=== PATIENT | male | born 1960 | race Caucasian/White ===

== ENCOUNTER 2019-07-01 21:49 | Emergency (ER) | payer MEDICAID ==
[2019-07-01] MEDS ORDERED: Sodium Chloride 0.9% 10 ML Syringe FLUSH PRN (21:56)
[2019-07-01] MEDS ORDERED: Ondansetron 4 MG/2 ML SDV IVPUSH ONE (21:56)
[2019-07-01] MEDS ORDERED: Sodium Chloride 0.9% 1,000 ML IV ONE (21:56)
--- NOTE | 2019-07-01 22:02 | EDM.PDOC ---
ED HPI GENERAL MEDICAL PROBLEM - General Chief Complaint: Chest Pain Stated Complaint: chest pain Time Seen by Provider: 07/01/19 21:55 Source of Information: Reports: Patient History Limitations: Reports: No Limitations - History of Present Illness INITIAL COMMENTS - FREE TEXT/NARRATIVE: Patient is a 58-year-old gentleman who presents to the emergency department this evening via EMS for a complaint of chest pain. Patient states at approximately 1930 this evening, while seated, and after consuming a very large meal and a glass of milk, he developed sharp pain localized to right upper chest. Patient felt nauseous and vomited once. Patient states that the pain has been mostly constant, with some periods of relief. Patient states he does have a history of hepatitis, but denies any cardiac history. Patient denies fever, shortness of breath, out of country travel, abdominal pain, pain radiation to extremities or neck, lower extremity edema, or any trauma. Onset: Today Onset Time: 19:30 Duration: Hour(s): Location: Reports: Chest Quality: Reports: Sharp Severity: Moderate Improves with: Reports: None Worsens with: Reports: None Associated Symptoms: Reports: Chest Pain, Diaphoresis, Nausea/Vomiting. Denies : Fever/Chills, Shortness of Breath Right Anterior Chest Pain Score (Numeric/FACES): 4 - Related Data Allergies Allergy/AdvReac Type Severity Reaction Status Date / Time aspirin Allergy Intermediate Bronchospas Verified 07/01/19 21:54 ms codeine Allergy Intermediate Bronchospas Verified 07/01/19 21:54 ms NSAIDS (Non-Steroidal Allergy Intermediate Abdominal Verified 07/01/19 21:54 Anti-Inflamma Pain Penicillins Allergy Intermediate Rash Verified 07/01/19 21:54 erythromycin base Allergy Rash Verified 07/01/19 21:54 Home Meds: Home Meds Famotidine [Pepcid] 20 mg PO BID #20 tab 07/01/19 [Rx] Ondansetron [Zofran ODT] 4 mg PO Q6H #10 tab.dis 07/01/19 [Rx] ED ROS GENERAL - Review of Systems Review Of Systems: Comprehensive ROS is negative, except as noted in HPI. Constitutional: Reports: No Symptoms HEENT: Reports: No Symptoms Respiratory: Reports: No Symptoms Cardiovascular: Reports: Chest Pain Endocrine: Reports: No Symptoms GI/Abdominal: Reports: Nausea, Vomiting. Denies: Abdominal Pain : Reports: No Symptoms Musculoskeletal: Reports: No Symptoms Skin: Reports: No Symptoms Neurological: Reports: No Symptoms Psychiatric: Reports: No Symptoms Hematologic/Lymphatic: Reports: No Symptoms Immunologic: Reports: No Symptoms ED EXAM, GENERAL - Physical Exam Exam: See Below Exam Limited By: No Limitations General Appearance: Alert, WD/WN, Mild Distress Eye Exam: Bilateral Eye: Normal Inspection Nose: Normal Inspection, Normal Mucosa, No Blood Throat/Mouth: Normal Inspection, Normal Oropharynx, No Airway Compromise Head: Atraumatic, Normocephalic Neck: Normal Inspection, Supple Respiratory/Chest: No Respiratory Distress, Lungs Clear, Normal Breath Sounds, No Accessory Muscle Use Cardiovascular: Regular Rate, Rhythm, No Murmur, No Rub GI/Abdominal: Normal Bowel Sounds, Soft, Non-Tender, No Organomegaly, No Distention, No Abnormal Bruit, No Mass Back Exam: Normal Inspection. No: CVA Tenderness (L), CVA Tenderness (R) Extremities: Normal Inspection, No Pedal Edema Neurological: Alert, Oriented, Normal Cognition Psychiatric: Normal Affect, Normal Mood Skin Exam: Warm, Dry, Intact, Normal Color, No Rash Lymphatic: No Adenopathy EKG INTERPRETATION EKG Date: 07/01/19 Time: 22:02 Rhythm: NSR Rate (Beats/Min): 86 [place]: Normal P-Wave: Present QRS: Normal ST-T: Normal QT: Normal Comparison: NA - No Prior EKG Course - Vital Signs Last Recorded V/S: Last Vital Signs Temp 97.4 F 07/01/19 21:50 Pulse 96 07/01/19 21:50 Resp 26 H 07/01/19 21:50 BP 117/79 07/01/19 21:50 Pulse Ox 97 07/01/19 21:50 - Orders/Labs/Meds Orders: Active Orders 24 hr Category Date Time Status EKG Documentation Completion [RC] ASDIRECTED Care 07/01/19 21:56 Ordered Peripheral IV Care [RC] . DIRECTED Care 07/01/19 21:56 Ordered Chest 1V Frontal [CR] Stat Exams 07/01/19 21:56 Ordered Sodium Chloride 0.9% [Saline Flush] Med 07/01/19 21:56 Ordered 10 ml FLUSH Q8HR PRN Peripheral IV Insertion Adult [OM.PC] Routine Oth 03/09/20 21:56 Ordered EKG 12 Lead [EK] Routine Ther 07/01/19 21:56 Ordered Medication Orders Sodium Chloride (Saline Flush) 10 ml FLUSH Q8HR PRN PRN Reason: keep vein open Labs: Laboratory Tests 07/01/19 07/01/19 Range/Units 22:50 22:50 WBC 10.38 H (5.00-10.00) 10^3/uL RBC 4.47 L (4.50-6.00) 10^6/uL Hgb 14.5 (13.0-17.0) g/dL Hct 41.2 (40.0-52.0) % MCV 92.2 H (82.0-92.0) fL MCH 32.4 H (27.0-31.0) pg MCHC 35.2 (32.0-36.0) g/dL RDW 13.8 (11.5-14.5) % Plt Count 42 L (150-400) 10^3/uL MPV 11.2 H (7.4-10.4) fL Immature Gran % (Auto) 0.3 (0.0-5.0) % Neut % (Auto) 71.4 H (50.0-70.0) % Lymph % (Auto) 21.4 (20.0-40.0) % [place] % (Auto) 5.5 (2.0-8.0) % Eos % (Auto) 1.0 (1.0-3.0) % Baso % (Auto) 0.4 (0.0-1.0) % Immature Gran # (Auto) 0.03 (0.00-0.50) 10^3/uL Neut # (Auto) 7.42 H (2.50-7.00) 10^3/uL Lymph # (Auto) 2.22 (1.00-4.00) 10^3/uL [place] # (Auto) 0.57 (0.10-0.80) 10^3/uL Eos # (Auto) 0.10 (0.10-0.30) 10^3/uL Baso # (Auto) 0.04 (0.00-0.10) 10^3/uL Clumped Platelets Occasional [place] Bodies Sodium 141 (136-145) mmol/L Potassium 5.7 H (3.3-5.3) mmol/L Chloride 102 (98-115) mmol/L Carbon Dioxide 25.6 (21.0-32.0) mmol/L Anion Gap 19.1 H (5-15) mmol/L BUN 29 H (6-25) mg/dL Creatinine 1.17 (0.51-1.17) mg/dL Est Cr Clr Drug Dosing 71.06 mL/min Estimated GFR (MDRD) > 60 mL/min Glucose 91 (75 - 99) mg/dL Calcium 10.2 (8.7-10.3) mg/dL Magnesium 2.3 (1.8-2.4) mg/dL Total Bilirubin 1.0 (0.2-1.0) mg/dL AST 66 H (15-37) U/L ALT 50 (12-78) U/L Alkaline Phosphatase 126 H (46-116) IU/L Troponin I < 0.04 (0.00-0.070) ng/mL Total Protein 8.4 H (6.4-8.2) g/dL Albumin 4.19 (3.00-4.80) g/dL Amylase 79 (25-125) U/L Lipase 92 (73-393) U/L Meds: Medications Generic Name Dose Route Start Last Admin Trade Name Freq PRN Reason Stop Dose Admin Sodium Chloride 10 ml 07/01/19 21:56 Saline Flush FLUSH Q8HR PRN keep vein open Discontinued Medications Generic Name Dose Route Start Last Admin Trade Name Freq PRN Reason Stop Dose Admin Famotidine 20 mg 07/01/19 23:40 Pepcid PO 07/01/19 23:41 ONETIME ONE Sodium Chloride 1,000 mls @ 999 mls/hr 07/01/19 21:56 Normal Saline IV 07/01/19 22:56 .BOLUS ONE Ondansetron HCl 4 mg 07/01/19 21:56 Zofran IVPUSH 07/01/19 21:57 ONETIME ONE Ondansetron HCl 4 mg 07/01/19 22:13 07/01/19 22:19 Zofran Odt PO 07/01/19 22:14 4 mg ONETIME ONE Administration Ondansetron HCl 4 mg 07/01/19 23:42 Zofran Odt PO 03/09/20 23:43 ONETIME ONE - Radiology Interpretation Free Text/Narrative:: Chest x-ray shows no acute cardiopulmonary process - Re-Assessments/Exams Free Text/Narrative Re-Assessment/Exam: 07/01/19 23:43 Patient afebrile, vital signs stable, discomfort relieved. Patient will follow- up at [facility] in 1-2 days. Departure - Departure Time of Disposition: 23:44 Disposition: Home, Self-Care 01 Condition: Good Clinical Impression: Gastroesophageal reflux disease Qualifiers: Esophagitis presence: without esophagitis Qualified Code(s): K21.9 - Gastro- esophageal reflux disease without esophagitis Instructions: Food Choices for Gastroesophageal Reflux Disease, Adult, Easy-to- Read, Gastroesophageal Reflux Disease, Adult, [id number] Forms: ED Department Discharge Additional Instructions: Follow-up at [facility] in next 1-2 days. Return to emergency department sooner symptoms continue or worsen. Take medication as directed. Sepsis Event Note - Focused Exam Vital Signs: Vital Signs Temp Pulse Resp BP Pulse Ox 07/01/19 21:50 97.4 F 96 26 H 117/79 97 Date Exam was Performed: 07/01/19 Time Exam was Performed: 23:43 - My Orders Last 24 Hours: My Active Orders 07/01/19 21:56 EKG Documentation Completion [RC] ASDIRECTED Peripheral IV Care [RC] . DIRECTED Chest 1V Frontal [CR] Stat Sodium Chloride 0.9% [Saline Flush] 10 ml FLUSH Q8HR PRN Peripheral IV Insertion Adult [OM.PC] Routine EKG 12 Lead [EK] Routine - Assessment/Plan Last 24 Hours: My Active Orders 07/01/19 21:56 EKG Documentation Completion [RC] ASDIRECTED Peripheral IV Care [RC] . DIRECTED Chest 1V Frontal [CR] Stat Sodium Chloride 0.9% [Saline Flush] 10 ml FLUSH Q8HR PRN Peripheral IV Insertion Adult [OM.PC] Routine EKG 12 Lead [EK] Routine Assessment:: GERD Plan: Follow-up with PCP
[2019-07-01] MEDS ORDERED: Ondansetron 4 MG Tab.DIS PO ONE ×2 (22:13→23:42)
[2019-07-01 23:31] LABS: ANION GAP 19.1 mmol/L (5-15); CHLORIDE,CL 102 mmol/L (98-115); SODIUM,NA 141 mmol/L (136-145)
[2019-07-01] MEDS ORDERED: Famotidine 20 MG Tab PO ONE (23:40)
--- NOTE | 2019-07-02 08:32 | CR ---
[id number] RAD/RAD Chest PA or AP 1V EXAM: RAD Chest PA or AP 1V INDICATION: CHEST PAIN COMPARISON: August 27, 2013. DISCUSSION: Cardiomediastinal silhouette is normal in size and contour. No infiltrate, effusion, pneumothorax, or edema. IMPRESSION: No acute findings in the chest. Addy Bellamy MD 07/02/19 0831 Thank you for allowing us to participate in the care of your patient.
== END 2019-07-01 23:55 | disposition home or self-care (01) ==
LOC: KA.ED 21:49
DX: K21.9 Gastro-esophageal reflux disease without esophagitis (principal); Z88.6 Allergy status to analgesic agent; Z88.5 Allergy status to narcotic agent; Z88.0 Allergy status to penicillin; Z88.1 Allergy status to other antibiotic agents; Z88.8 Allergy status to other drugs, medicaments and biological substances; Z79.899 Other long term (current) drug therapy
CPT/HCPCS: 36415; 71045; 80053; 82150; 83690; 83735; 84484; 85025; 93005; 99285-25; A9270-GY

== ENCOUNTER 2022-05-15 19:20 | Emergency (ER) | payer MEDICAID, SELFPAY ==
[2022-05-15] MEDS ORDERED: Ondansetron 4 MG/2 ML SDV IVPUSH ONE (19:37)
[2022-05-15] MEDS ORDERED: Sodium Chloride 0.9% 1,000 ML IV ONE (19:37)
[2022-05-15] MEDS ORDERED: Sodium Chloride 0.9% 10 ML Syringe FLUSH PRN (19:37)
[2022-05-15 20:42] LABS: ANION GAP 12.9 mmol/L (5-15)
[2022-05-15 20:42] LABS: RESPIRATORY SYNCYTIAL VIR NAA NEGATIVE (NEGATIVE)
[2022-05-15 20:44] LABS: CORONAVIRUS COVID-19 NAA POSITIVE (NEGATIVE)
[2022-05-15] MEDS ORDERED: Albuterol/Ipratropium 3.0-0.5 MG/3 ML Neb Soln NEB ONE (20:45)
[2022-05-15] MEDS ORDERED: Ketorolac 30 MG/ML SDV IVPUSH ONE (20:45)
[2022-05-15] MEDS ORDERED: Acetaminophen 500 MG Tab PO ONE (20:48)
== END 2022-05-15 21:40 | disposition home or self-care (01) ==
LOC: KA.ED 19:20
DX: U07.1 COVID-19 (principal); E86.0 Dehydration; Z88.5 Allergy status to narcotic agent; Z88.0 Allergy status to penicillin; Z88.8 Allergy status to other drugs, medicaments and biological substances; Z88.6 Allergy status to analgesic agent
CPT/HCPCS: 0241U; 36415; 71045; 80053; 83605; 84484; 85025; 93005; 93010; 94640; 96361; 96374; 96375; 99285; 99285-25; A9270-GY; J1885; J2405; J7030; J7620-GY

== ENCOUNTER 2023-04-03 02:56 | Emergency (ER) | payer SELFPAY ==
[2023-04-03] MEDS ORDERED: predniSONE 20 MG Tab PO ONE (03:34)
== END 2023-04-03 06:23 | disposition home or self-care (01) ==
LOC: KA.ED 02:56
DX: J45.909 Unspecified asthma, uncomplicated (principal); J44.9 Chronic obstructive pulmonary disease, unspecified; K21.9 Gastro-esophageal reflux disease without esophagitis; Z87.891 Personal history of nicotine dependence; Z79.899 Other long term (current) drug therapy; Z88.0 Allergy status to penicillin; Z88.8 Allergy status to other drugs, medicaments and biological substances; Z79.51 Long term (current) use of inhaled steroids; Z79.52 Long term (current) use of systemic steroids
CPT/HCPCS: 99284; J7512

== ENCOUNTER 2023-07-30 10:32 | Emergency (ER) | payer MEDICAID ==
[2023-07-30 11:15] LABS: BASOPHILS ABSOLUTE AUTO 0.06 10^3/uL (0.00-0.10); BASOPHILS PERCENT AUTO 0.6 % (0.0-1.0); EOSINOPHILS ABSOLUTE AUTO 0.05 10^3/uL (0.10-0.30); EOSINOPHILS PERCENT AUTO 0.5 % (1.0-3.0); HEMATOCRIT 43.4 % (40.0-52.0); HEMOGLOBIN 15.2 g/dL (13.0-17.0); IMMATURE GRAN ABSOLUTE AUTO 0.02 10^3/uL (0.00-0.50); IMMATURE GRAN PERCENT AUTO 0.2 % (0.0-5.0); LYMPHOCYTES ABSOLUTE AUTO 1.16 10^3/uL (1.00-4.00); LYMPHOCYTES PERCENT AUTO 11.8 % (20.0-40.0); MEAN CORPUSCULAR HEMOGLOBIN 30.8 pg (27.0-31.0); MEAN CORPUSCULAR VOLUME 87.9 fL (82.0-92.0); MEAN PLATELET VOLUME 8.9 fL (7.4-10.4); MONOCYTES ABSOLUTE AUTO 1.04 10^3/uL (0.10-0.80); MONOCYTES PERCENT AUTO 10.6 % (2.0-8.0); NEUTROPHILS ABSOLUTE AUTO 7.49 10^3/uL (2.50-7.00); NEUTROPHILS PERCENT AUTO 76.3 % (50.0-70.0); PLATELET COUNT,PLT 302 10^3/uL (150-400); RED BLOOD CELL COUNT 4.94 10^6/uL (4.50-6.00); RED CELL DISTRIBUTION WIDTH 14.5 % (11.5-14.5); WHITE BLOOD CELL COUNT,WBC 9.82 10^3/uL (5.00-10.00)
[2023-07-30 11:34] LABS: ALANINE AMINOTRANSFERASE,ALT 31 U/L (14-63); ALBUMIN 3.35 g/dL (3.40-5.00); ALKALINE PHOSPHATASE 117 U/L (46-116); ANION GAP 17.2 mmol/L (5-15); ASPARTATE AMNIOTRANSFERASE,AST 29 U/L (15-37); BILIRUBIN TOTAL 0.6 mg/dL (0.2-1.0); BLOOD UREA NITROGEN,BUN 10 mg/dL (7-18); CALCIUM 8.6 mg/dL (8.7-10.3); CARBON DIOXIDE,CO2 22.9 mmol/L (21.0-32.0); CHLORIDE,CL 98 mmol/L (98-107); GLUCOSE RANDOM 96 mg/dL (70-140); POTASSIUM,K 4.1 mmol/L (3.5-5.1); PROTEIN TOTAL,TP 7.5 g/dL (6.4-8.2); SODIUM,NA 134 mmol/L (136-145)
[2023-07-30 11:37] LABS: B-TYPE NATRIURETIC PEPTIDE,BNP 26 pg/mL (0-100)
[2023-07-30 11:39] LABS: ESTIMATED GFR 97 mL/min (>=60)
[2023-07-30] MEDS: methylPREDNISolone Sodium Succinate 125 MG/2 ML SDV IVPUSH ONE (11:46)
[2023-07-30 12:23] LABS: INFLUENZA A NAA NEGATIVE (NEGATIVE); INFLUENZA B NAA POSITIVE (NEGATIVE); RESPIRATORY SYNCYTIAL VIR NAA NEGATIVE (NEGATIVE)
[2023-07-30 12:29] LABS: CORONAVIRUS COVID-19 NAA NEGATIVE (NEGATIVE)
[2023-07-30] MEDS: Ondansetron 4 MG/2 ML SDV IVPUSH ONE (12:33)
[2023-07-30] MEDS: Sodium Chloride 0.9% 10 ML Syringe FLUSH PRN (12:34)
== END 2023-07-30 12:50 | disposition home or self-care (01) ==
LOC: KA.ED 10:32
DX: J44.1 Chronic obstructive pulmonary disease with (acute) exacerbation (principal); J10.1 Influenza due to other identified influenza virus with other respiratory manifestations; I25.10 Atherosclerotic heart disease of native coronary artery without angina pectoris; I10 Essential (primary) hypertension; K21.9 Gastro-esophageal reflux disease without esophagitis; Z88.6 Allergy status to analgesic agent; Z88.5 Allergy status to narcotic agent; Z88.0 Allergy status to penicillin; Z88.1 Allergy status to other antibiotic agents; Z79.899 Other long term (current) drug therapy
CPT/HCPCS: 0241U; 36415; 71046; 80053; 83880; 84484; 85025; 93005; 93010; 96374; 96375; 99284; 99285-25; A9270-GY; J2405; J2930; J3490

== ENCOUNTER 2023-12-15 16:20 | Emergency (ER) | payer MEDICAID ==
[2023-12-15 17:13] LABS: CORONAVIRUS COVID-19 NAA NEGATIVE (NEGATIVE); INFLUENZA A NAA NEGATIVE (NEGATIVE); INFLUENZA B NAA NEGATIVE (NEGATIVE); RESPIRATORY SYNCYTIAL VIR NAA NEGATIVE (NEGATIVE)
[2023-12-15 17:14] LABS: BASOPHILS ABSOLUTE AUTO 0.06 10^3/uL (0.00-0.10); BASOPHILS PERCENT AUTO 0.3 % (0.0-1.0); EOSINOPHILS ABSOLUTE AUTO 0.33 10^3/uL (0.10-0.30); EOSINOPHILS PERCENT AUTO 1.9 % (1.0-3.0); HEMATOCRIT 45.1 % (40.0-52.0); HEMOGLOBIN 15.9 g/dL (13.0-17.0); IMMATURE GRAN ABSOLUTE AUTO 0.04 10^3/uL (0.00-0.50); IMMATURE GRAN PERCENT AUTO 0.2 % (0.0-5.0); LYMPHOCYTES ABSOLUTE AUTO 2.89 10^3/uL (1.00-4.00); LYMPHOCYTES PERCENT AUTO 16.4 % (20.0-40.0); MEAN CORPUSCULAR HEMOGLOBIN 31.3 pg (27.0-31.0); MEAN CORPUSCULAR HGB CONC 35.3 g/dL (32.0-36.0); MEAN CORPUSCULAR VOLUME 88.8 fL (82.0-92.0); MEAN PLATELET VOLUME 9.1 fL (7.4-10.4); MONOCYTES ABSOLUTE AUTO 1.74 10^3/uL (0.10-0.80); MONOCYTES PERCENT AUTO 9.8 % (2.0-8.0); NEUTROPHILS ABSOLUTE AUTO 12.61 10^3/uL (2.50-7.00); NEUTROPHILS PERCENT AUTO 71.4 % (50.0-70.0); PLATELET COUNT,PLT 338 10^3/uL (150-400); RED BLOOD CELL COUNT 5.08 10^6/uL (4.50-6.00); RED CELL DISTRIBUTION WIDTH 13.7 % (11.5-14.5); WHITE BLOOD CELL COUNT,WBC 17.67 10^3/uL (5.00-10.00)
[2023-12-15 17:24] LABS: APPEARANCE,URINE CLEAR (CLEAR); BILIRUBIN,URINE SMALL (NEGATIVE); COLOR,URINE DARK YELLOW (YELLOW); GLUCOSE,URINE NEGATIVE (NEGATIVE); KETONES,URINE TRACE mg/dL (NEGATIVE); LEUKOCYTE ESTERASE,URINE NEGATIVE (NEGATIVE); NITRITE,URINE NEGATIVE (NEGATIVE); OCCULT BLOOD,URINE NEGATIVE (NEGATIVE); PH,URINE 6.5 (5.0-9.0); PROTEIN,URINE NEGATIVE (NEGATIVE)
[2023-12-15 17:32] LABS: BACTERIA,URINE OCCASIONAL /HPF (NONE TO FEW); EPITHELIAL CELLS,URINE RARE /LPF; MUCUS,URINE RARE /LPF (NEGATIVE); RBC,URINE 0-5 /HPF (0-5); WBC,URINE 0-5 /HPF (0-5)
[2023-12-15 17:36] LABS: ALBUMIN 3.07 g/dL (3.40-5.00); ANION GAP 14.2 mmol/L (5-15); BILIRUBIN TOTAL 0.9 mg/dL (0.2-1.0); CALCIUM 9.3 mg/dL (8.7-10.3); CARBON DIOXIDE,CO2 24.7 mmol/L (21.0-32.0); CREATININE 0.74 mg/dL (0.51-1.17); EST CRCL DRUG DOSING (CG) 105.5 mL/min; POTASSIUM,K 3.9 mmol/L (3.5-5.1); PROTEIN TOTAL,TP 7.6 g/dL (6.4-8.2)
== END 2023-12-15 18:00 | disposition home or self-care (01) ==
LOC: KA.ED 16:20
DX: J18.9 Pneumonia, unspecified organism (principal); D72.828 Other elevated white blood cell count; J44.9 Chronic obstructive pulmonary disease, unspecified; Z88.6 Allergy status to analgesic agent; Z88.5 Allergy status to narcotic agent; Z88.0 Allergy status to penicillin; Z88.1 Allergy status to other antibiotic agents; Z79.51 Long term (current) use of inhaled steroids; Z79.899 Other long term (current) drug therapy; Z86.16 Personal history of COVID-19
CPT/HCPCS: 0241U; 36415; 71045; 80053; 81001; 83605; 84484; 85025; 99284; 99285